=== PATIENT | female | born 1990 | race Caucasian/White ===

== ENCOUNTER 2022-03-19 09:08 | Outpatient (CLI) | payer BC, SELFPAY ==
[2022-03-19 13:06] LABS: Albumin* 4.5 g/dL (3.3-5.0); Chloride* 102 mmol/L (96-114); Sodium* 139 mmol/L (135-149)
[2022-03-19 13:07] LABS: Potassium* 3.9 mmol/L (3.6-5.1)
[2022-03-19 13:09] LABS: Aspartate Amino Transferase* 26 U/L (12-35); Bilirubin Total* 0.3 mg/dL (0.1-1.5); Blood Urea Nitrogen* 8 mg/dL (5-24); Carbon Dioxide* 27 mmol/L (20-32); Creatinine* 0.6 mg/dL (0.5-1.5); Estimated Glomerular Filt Rate 123 ml/min; Total Protein* 7.4 g/dL (6.0-8.3)
[2022-03-19 13:10] LABS: Alanine Aminotransferase* 27 U/L (4-35); Alkaline Phosphatase* 66 U/L (40-150); Calcium* 8.7 mg/dL (8.4-10.6); Glucose* 90 mg/dL (60-115)
[2022-03-19 13:16] LABS: Vitamin D 25 Hydroxy* 34 ng/mL (30-80)
== END 2022-03-19 09:09 | disposition home or self-care (01) ==
PROVIDERS: Visit Provider Nurse Practitioner Family
DX: Z01.419 Encounter for gynecological examination (general) (routine) without abnormal findings (principal); F41.9 Anxiety disorder, unspecified; Z79.899 Other long term (current) drug therapy
CPT/HCPCS: 80053; 82306; 84443

== ENCOUNTER 2023-02-18 14:52 | Outpatient (CLI) | payer BC, SELFPAY | END 2023-02-18 14:53 | disposition home or self-care (01) | LOC: NFLDREF 02-19 06:37 | PROVIDERS: Visit Provider Physician Assistant | DX: R30.0 Dysuria (principal); N39.0 Urinary tract infection, site not specified | CPT/HCPCS: 87086; 87186 ==

== ENCOUNTER 2023-09-10 11:09 | Outpatient (CLI) | payer BC, SELFPAY ==
--- OUTSIDE RECORDS SUMMARY | 2023-09-10 11:12 | XMS_ITS | Clinical Summary ---
Author Name Unknown Organization [facility] Address [place], [place] [address] Care Team Providers Care Tool Shaper Setup Operator Name Role Phone [facility] Primary Care Provider Unavail able Allergies Active Allergy Reactions Criticality Noted Date Comments Amoxicillin *Unknown - Childhood Rxn 01/12/2007 Medications Medication Sig Dispensed Refills Start Date End Date Status fluticasone (50 mcg per actuation) nasal solution (FLONASE)Indications: Eustachian tube dysfunction, bilateral Inhale 1 [place] into both nostrils once daily. 1 Bottle 2 03/07/2017 Active sertraline (ZOLOFT) 50 mg tablet Take 1 Tablet (50 mg) by mouth every morning. 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 Neurointerventional consultation at [facility] Neurointerventional clinic for long-term follow-up of these aneurysms can be arranged by calling . Aneurysm of cavernous portio n of right internal carotid artery 03/13/2016 Overview: CT 03/13/16: Incidental 1.5mm cavernous ICA aneurysms bilaterally. Neurointerventional consultation at [facility] clinic for long-term follow-up of these aneurysms can be arranged by calling . History of laparoscopic appendectomy 06/13/2012 Social History Tobacco Use Types Packs/Day Years Used Date Smoking Tobacco: Never Smokeless Tobacco: Never Tobacco Cessation:Counseling Given: Yes Alcohol Use Standard Drinks/Week Comments Yes 0 (1 standard drink = 0.6 oz pur e alcohol) once every 3 months Social Connections Answer Date Recorded Frequency of Communication with Friends and Fami ly Not on file 07/28/2021 Financial Resource Strain Answer Date R ecorded Difficulty of Paying Living Expenses Not on file 07/28/2021 Difficulty of Paying Living Expenses Not on file 07/28/2021 Sex and Gender Information Value Date Recorded Sex Assigned at Not on file Gender Identity Not on file Sexual Orientation Not on file Obstetrics History Para Term AB IAB SAB Ectopic Multiple Livin g Live Births 1 1 1 1 1 Date Outcome GA Total Labor Labor/2nd/3rd Weight Sex Delivery Anes PTL Deirdre A1 A5 Name Cl in Term Vag Emilee ng Last Filed Vital Signs Vital Sign Reading Time Taken Comments Blood Pressure 104/67 03/27/2020 9:26 AM CDT Pulse 65 03/27/2020 9:26 AM CDT Temperature 36.7 ??C (98.1 ??F) 03/27/2020 9:26 AM CD T Respiratory Rate - - Oxygen Saturation 100% 03/27/2020 9:26 AM CDT Inhaled Oxygen Concentration - - Weight 60.5 kg (133 lb 6.4 oz) 03/27/2020 9:26 A M CDT Height 162.6 cm (5' 4) 03/27/2020 9:26 AM CDT Body Mass Index 22.9 03/27/2020 9:26 AM CDT Plan of Treatment Health Maintenance Due Date Last Done Comments COVID-19 vaccine series (#1) 01/05/1991 Tdap 2001 HIV for age 15-65 2005 Hepatitis C screening for age 18-79 2008 Tetanus booster 2010 Depression screening for age 12+ 09/20/2017 09/20/2016, 08/27/2016, 06/25/2016 BMI (ht and wt on same day) for age 18+ 03/27/2021 03/27/2020, 03/07/2017, 06/25/2016 Influenza for age 9-49 03/28/2023 Pap test for age 21-65 08/29/2023 , 08/29/2020, 10/30/2016, Additional history exists Pneumococcal series for age 6-64 Aged Out No longer eligible based on patient's age to complete this topic Care Teams Tool Shaper Setup Operator Relationship Specialty Start Date End Date Bipin Uribe PCP - General 06/30/17
== END 2023-09-10 11:10 | disposition home or self-care (01) ==
PROVIDERS: PCP Family Medicine; Visit Provider Family Medicine
DX: Z00.00 Encounter for general adult medical examination without abnormal findings (principal); R53.83 Other fatigue; F90.9 Attention-deficit hyperactivity disorder, unspecified type; F41.9 Anxiety disorder, unspecified
CPT/HCPCS: 80053; 80061; 84443

== ENCOUNTER 2024-05-24 08:40 | Outpatient (CLI) | payer BC, SELFPAY ==
--- OUTSIDE RECORDS SUMMARY | 2024-05-24 08:43 | XMS_ITS | Clinical Summary ---
Author Organization [facility] Address [place], [place] [address] Care Team Providers Care Casting Cleaner Name Role Phone Clinic, [facility] Primary Care Pr ovider Allergies Active Allergy Reactions Criticality Noted Date Comments Amoxicillin *Unknown - Childhood Rxn 01/12/2007 Medications Medication Sig Dispensed Refills Start Date End Date Status fluticasone (50 mcg per actuation) nasal solution (FLONASE)Indications: Eustachian tube dysfunction, bilateral Inhale 1 [place] into both nostrils once daily. 1 Bottle [...] n of left internal carotid artery 03/13/2016 Overview (03/13/2016): On CT 03/13/16: Incidental 1.5mm cavernous ICA aneurysms bilaterally. Neurointerventional consultation at [facility] Neurointerventional clinic for long-term follow-up of these aneurysms can be arranged by calling . Aneurysm of cavernous portio n of right internal carotid artery 03/13/2016 Overview (03/13/2016): CT 03/13/16: Incidental 1.5mm cavernous ICA aneurysms bilaterally. Neurointerventional consultation at [facility] Neurointerventional clinic for long-term follow-up of [...] Outcome GA Total Labor Labor/2nd/3rd Weight Sex Type Anes PTL Deirdre A1 A5 Name Clin Term Vag Living Last Filed Vital Signs Vital Sign Reading [...] Health Maintenance Due Date Last Done Comments Tdap 2001 HIV for age 15-65 2005 Hepatitis C screening for age 18-79 2008 Tetanus booster 2010 Depression screening for age 12+ 09/20/2017 09/20/2016, 08/27/2016, 06/25/2016 BMI (ht and wt on same day) for age 18+ 03/27/2021 03/27/2020, 03/07/2017, 06/25/2016 COVID-19 vaccine series (2023- season) 2024 Influenza for age 9-49 03/28/2024 Pap test for age 21-65 10/06/2026 , 10/07/2023, 08/29/2020, Additional history exists Pneumococcal series for age 6-64 Aged Out No longer eligible based on patient's age to complete this topic Procedures Procedure Name Priority Date/Time Associated Diagnosis Comments HPV HIGH RISK Routine 10/07/2023 1:10 PM CDT from Last 3 Months or Most Recently Relevant to Health Maintenance Results * HPV HIGH RISK (10/07/2023 1:10 PM CDT) TYPE 16 Negative Negative 10/10/2023 1:50 PM CDT [facility] TYPE 18 Negative Negative 10/10/2023 1:50 PM CDT [facility] OTHER HIGH RISK TYPES Negative Negative 10/10/2023 1:50 PM CDT [facility] Other (Cervical/Vagina l) 10/07/2023 1:10 PM CDT 10/08/2023 5:08 PM CDT Narrative [facility] - 10/10/2023 1:50 PM CDT HPV types 16, 18, 31, 33, 35, 39, 45, 51, 52, 56, 58, 59, 66 and 68 DNA were undetectable or below the pre-set threshold. Methodology: Markus Vidhya 4800 HPV Test Radha Peguero MD [facility] [address] [place] [address], from Last 3 Months or Most Recently Relevant to Health Maintenance Care Teams Casting Cleaner Relationship Specialty Start Date End Date Clinic, [facility] [address], [place] [id number] PCP - General 03/08/24
--- NOTE | 2024-05-24 09:00 | CRLHL7_ITS ---
For Patients: As a result of the Century Cures Act, medical imaging exams and procedure reports are released immediately into your electronic medical record. You may view this report before your referring provider. If you have questions, please contact your health care provider. Indication: Right foot injury, pain Technique: Routine noncontrast CT right foot. Please note that all CT scans at this facility use dose modulation, iterative reconstruction, and/or weight-based dosing when appropriate to reduce radiation dose to as low as reasonably achievable. Comparison: Right foot x-rays 05/13/2024 Findings: There is a mildly displaced and comminuted fracture involving the anterior process of the calcaneus, primarily at the dorsal aspect. The fracture does extend to the calcaneocuboid joint without articular surface incongruity. The cuboid is intact. Normal navicular. The talus is unremarkable. The fracture does not involve the subtalar joint are sustentaculum talus. Normal visualized metatarsals and cuneiforms. Impression: Displaced and comminuted fracture of the anterior talus with extension to the calcaneocuboid joint. No subtalar involvement. Please note that all CT scans at this facility use dose modulation, iterative reconstruction, and/or weight-based dosing when appropriate to reduce radiation dose to as low as reasonably achievable. Dictated by Lenard Noriega MD @ 05/24/2024 10:35:33 AM (Electronically Signed)
--- NOTE | 2024-05-24 09:00 | CRLHL7_ITS ---
For Patients: As a result of the Century Cures Act, medical imaging exams and procedure reports are released immediately into your electronic medical record. You may view this report before your referring provider. If you have questions, please contact your health care provider. Indication: RIGHT FOOT INJURY/PAIN. EVAL TALOCALCANEAL COALITION/ANTERIOR PROCESS CALCANEUS FRACTURE Technique: Routine noncontrast CT right ankle. Please note that all CT scans at this facility use dose modulation, iterative reconstruction, and/or weight-based dosing when appropriate to reduce radiation dose to as low as reasonably achievable. Comparison: X-rays 05/13/2024 Findings: Mildly displaced and comminuted fracture involving the anterior process of the calcaneus at the lateral aspect without involvement of the anterior facet of the subtalar joint. No coalition. The fracture extends to the calcaneocuboid joint without articular surface incongruity. Normal posterior facet and middle facet of the subtalar joint. No osseous bridging. The talar dome is intact. No osteochondral defect. No joint effusion. Intact soft tissues. Impression: Mildly displaced and comminuted fracture of the anterior calcaneus with extension to the calcaneocuboid joint. No osseous coalition. Please note that all CT scans at this facility use dose modulation, iterative reconstruction, and/or weight-based dosing when appropriate to reduce radiation dose to as low as reasonably achievable. Dictated by Lenard Noriega MD @ 05/24/2024 10:39:34 AM (Electronically Signed)
== END 2024-05-24 08:41 | disposition home or self-care (01) ==
LOC: CT 08:41
PROVIDERS: PCP Family Medicine; Visit Provider Physician Assistant Surgical
DX: M79.671 Pain in right foot (principal); S92.021A Displaced fracture of anterior process of right calcaneus, initial encounter for closed fracture; S99.921A Unspecified injury of right foot, initial encounter; S99.911A Unspecified injury of right ankle, initial encounter
CPT/HCPCS: 73700

== ENCOUNTER 2024-09-17 10:30 | Outpatient (RCR) | payer OTHER, BC, SELFPAY ==
--- NOTE | 2024-08-03 12:08 | PT.OPEX ---
PT [place] Outpatient Eval PT [facility] Outpatient Eval Start: 08/03/24 11:07 Freq: Status: Active Protocol: Document 08/03/24 11:19 HARSHAL (Rec: 08/03/24 11:51 HARSHAL [id number]) E-signed By Marilyn Torres DPT Physical Therapy Outpatient Evaluation Insurance Information Insurance Name Ramila Valle Medical Diagnosis R foot fx Treating Diagnosis s/p injury 05/13/24 with R foot fx with R foot pain, impaired R foot/ankle ROM, impaired R ankle mobility/ strength, R ankle instability Subjective Subjective Patient reports injury to R foot when she misstepped off a curb on 05/13/24. 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 She stepped wrong off a wrong and felt a snap in her R foot. She was able to catch herself with a railing, did not fall. She reports getting back in the van but had R foot pain and could tell that she had done something to her R foot. She was seen in urgent care, issued CAM boot for R foot and crutches. She followed up with ortho. Patient reports having a CT showing R foot fx. Patient continued in the CAM boot, PWB on R foot using crutches. She had follow up with MARY ANN Singh 06/29/24 and was able to progress to WBAT in the CAM boot, no longer needing crutches. She reports having another follow up with MARY ANN Singh this morning and was given the ok to wean out of the CAM boot. Patient states that she has been going without the CAM boot at home. She is able to WB and walk without the boot at home, often works from home so has been going the full day without the boot some days. She continues to wear the CAM boot when going out to protect her foot. She is hoping to get stronger and improve her ankle stability so she can go out without the boot. Pain/swelling have been minimal. She uses tylenol/ advil prn, but not needing anything lately. Hasn't been needing to wear the compression lately. Pain range 0-3/10. Patient has been able to continue her normal work activities, states she works from home some days . She has not been started on any foot/ankle exercises yet. 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 Weight Bearing Status Full Weight Bearing Assessment Assessment/Impression Patient is a 34 year old s/p injury 05/13/24 with R foot fx with R foot pain, impaired R foot/ankle ROM, impaired R ankle mobility/strength, R ankle instability. Pain range 0-3/10. Patient reports minimal pain with progression to WBAT in the CAM boot about a month ago. She has been able to wean out of the CAM boot at home, reports that is going well. Patient states she had follow up with MARY ANN Singh this morning and she can wean out of the CAM boot. Patient is still using the CAM boot when going out, to protect her foot/ankle. She is hoping to improve her ankle strength/stability so she can discontinue the CAM boot. R ankle ROM: DF 5 degrees, PF 40 degrees. R ankle inv/ever ROM is tight, limited. Strength testing deferred this session as patient s/p fx and weaning out of CAM boot. She is able to perform limited AROM and tolerate gentle resistance with exercises this session. Able to initiate ankle ROM exercises this session and some gentle strengthening for her HEP. Tolerated well. Patient reports some tenderness R foot with palpation this session. No swelling noted this session. Patient would benefit from skilled PT for pain/sx management, improved R ankle ROM, improved R ankle strength/stability, balance/ proprioception training, gait training, and establishment of HEP. Plan of Care Rehabilitation Potential Good Physical Therapy Goals 1. Decrease/maintain R ankle/ foot pain at less than/equal to 3/10 with daily/work activities and with the progression of PT activities over the next 6-8 weeks. 2. Improve R ankle ROM to WFL over the next 6-8 weeks for return to normal gait mechanics, reciprocal stair negotiation, and PLF with daily/work activities. 3. Improve R ankle/LE strength/stability over the next 8-10 weeks for progression of WB, weaning out of CAM boot, return to normal gait in a shoe, and for return to PLF with daily/work/workout activities without flare up of pain. 4. Improve R ankle/LE balance /proprioception over the next 8-10 weeks for return to PLF with daily/work/workout activities and normal gait without flare up of pain. 5. Patient will be I with HEP within 10 weeks for progression toward above goals, ongoing self management of pain/sx, ongoing self improvements in ROM/strength/ stability/balance/ proprioception/gait, and for return to PLF with daily/work/workout activities without flare up of pain. Coordination/Communication With Referral Source Treatment Plan/Direct Interventions Gait Training,Manual Therapy, Neuromuscular Re-ed, Therapeutic Exercises Frequency/Duration 1x/week Patient Will Be Discharged From Therapy Completion of LTG(s),Skills Plateau,Independent w/HEP, Independently Progressing Evaluation Billing Untimed Code Treatment Minutes 20 Complexity Moderate Certification Information Provider Signature Required Yes Provider Signature Shows Agreement With POC & Medical Necessity Physician NPI Number Write NPI# Here Physician Comment/Change : Physician Signature & Date Requested Please Sign/Date Here
== END 2025-01-15 23:59 | disposition home or self-care (01) ==
PROVIDERS: PCP Family Medicine; Visit Provider Physician Assistant Surgical
DX: S92.901D Unspecified fracture of right foot, subsequent encounter for fracture with routine healing (principal); Z51.89 Encounter for other specified aftercare
CPT/HCPCS: 97110; 97162

== ENCOUNTER 2025-07-14 15:05 | Outpatient (CLI) | payer BC, SELFPAY ==
[2025-07-14 15:34] LABS: Hematocrit* 37.4 % (33.0-51.0); Hemoglobin* 11.3 gm/dL (12.0-16.0); Immature Granulocytes Abs Auto 0.00 K/uL (0.00-0.30); Immature Granulocytes Pct Auto 0.0 %; Lymphocytes Absolute Auto 1.20 K/uL (0.90-2.90); Mean Corpuscular HGB Conc 30 gm/dL (32-36); Mean Corpuscular Hemoglobin 26 pg (26-34); Mean Corpuscular Volume 86 fL (80-100); RDW Coefficient of Variation % 14.1 % (11.5-15.5); Red Blood Count* 4.35 m/uL (4.00-5.20); White Blood Count* 7.48 K/uL (4.50-11.00)
[2025-07-14 15:37] LABS: Slide Review Reflex No
[2025-07-14 15:54] LABS: Albumin* 4.9 g/dL (3.3-5.0); Chloride* 102 mmol/L (96-114); Potassium* 3.5 mmol/L (3.6-5.1); Sodium* 138 mmol/L (135-149)
[2025-07-14 15:57] LABS: Alanine Aminotransferase* 25 U/L (4-35); Alkaline Phosphatase* 47 U/L (40-150); Anion Gap 11 mEq/L (7-15); Aspartate Amino Transferase* 23 U/L (12-35); Bilirubin Total* 0.3 mg/dL (0.1-1.5); Blood Urea Nitrogen* 13 mg/dL (5-24); Calcium* 9.0 mg/dL (8.4-10.6); Carbon Dioxide* 25 mmol/L (20-32); Creatinine* 0.6 mg/dL (0.5-1.5); Estimated Glomerular Filt Rate 120 ml/min; Glucose* 95 mg/dL (60-115); Total Protein* 8.1 g/dL (6.0-8.3)
[2025-07-14 16:15] LABS: Iron* 29 ug/dL (37-170)
[2025-07-14 16:34] LABS: Free T4 Free Thyroxine* 0.96 ng/dL (0.70-1.85)
[2025-07-14 16:39] LABS: Vitamin D 25 Hydroxy* 27 ng/mL (30-80)
[2025-07-14 16:47] LABS: Vitamin B12* 279 pg/mL (243-894)
[2025-07-17 10:47] LABS: Folate, Serum 20.9 ng/mL (>=5.9)
== END 2025-07-14 15:06 | disposition home or self-care (01) ==
PROVIDERS: PCP Family Medicine
DX: F90.2 Attention-deficit hyperactivity disorder, combined type (principal); F41.1 Generalized anxiety disorder; F43.89 Other reactions to severe stress
CPT/HCPCS: 36415; 80053; 82306; 82607; 82728; 82746; 83036; 83540; 84439; 84443; 85025